=== PATIENT | female | born 1990 | race Caucasian/White ===

== ENCOUNTER 2018-02-04 15:30 | Emergency (ER) | payer MEDICAID ==
[2018-02-04 15:52] VITALS: BMI 20.7
[2018-02-04 15:56] VITALS: O2SAT 100
--- NOTE | 2018-02-04 16:03 | C.PDOC ---
History Of Present Illness 27 yo female come in for evaluation of lower back, B/L hips and Right ankle pain developed for past 3 days after sustained mechanical fall. Pt reports, " tripped and fell down, twisted my ankle". Pt sts, pain is localized over injured area, non-radiating and worse with movement, weight bearing. Otherwise, pt denies head injury, LOC, syncope, headache, neck pain, CP, denies obvious deformity, weakness, sensory or vascular deficits. Ambulate to Ed for evaluation , not in any apparent distress. Time Seen by Provider: 02/04/18 15:49 Chief Complaint (Nursing): Lower Extremity Problem/Injury History Per: Patient Past Medical History Reviewed: Historical Data, Nursing Documentation, Vital Signs Vital Signs: Last Vital Signs Temp 98 F 02/04/18 17:31 Pulse 60 02/04/18 17:31 Resp 20 02/04/18 17:31 BP 126/76 02/04/18 17:31 Pulse Ox 100 02/04/18 17:54 - Medical History PMH: No Chronic Diseases - [facility] Procedures CLOSURE SKIN & SUBCUTANEOUS NEC (07/02/14) EXCISION OF RIGHT FALLOPIAN TUBE, ENDO (08/30/15) RESECTION OF PRODUCTS OF CONCEPTION, ECTOPIC, ENDO (08/30/15) TETANUS TOXOID ADMINIST (07/02/14) Family History: States: Unknown Family Hx - Social History Hx Tobacco Use: Yes Hx Alcohol Use: Yes Hx Substance Use: No - Immunization History Hx Tetanus Toxoid Vaccination: Yes (2 years ago) Hx Influenza Vaccination: No Hx Pneumococcal Vaccination: No Review Of Systems Except As Marked, All Systems Reviewed And Found Negative. Constitutional: Negative for: Fever, Chills Eyes: Negative for: Vision Change ENT: Negative for: Ear Discharge, Nose Discharge, Throat Pain Cardiovascular: Negative for: Chest Pain Gastrointestinal: Negative for: Nausea, Vomiting Genitourinary: Negative for: Incontinence Musculoskeletal: Positive for: Back Pain, Other (Right ankle) Skin: Negative for: Rash, Bruising Neurological: Negative for: Weakness, Numbness, Altered Mental Status, Headache , Dizziness Physical Exam - Physical Exam Appears: Well, Non-toxic, No Acute Distress Skin: Normal Color, Warm, Dry, No Rash, No Ecchymosis Head: Normacephalic Eye(s): bilateral: PERRL Nose: No Flaring, No Discharge Oral Mucosa: Moist Tongue: Normal Appearing Lips: Normal Appearing Neck: Trachea Midline, No Midline Cervical Tenderness, No Paracervical Tenderness, No Step Off Deformity, Supple Chest: Symmetrical, No Deformity, No Tenderness Back: No CVA Tenderness, No Vertebral Tenderness, No Muscle Spasm, Paraspinal Tenderness (mild diffuse lumbar) Extremity: Normal ROM (Right ankle), No Tenderness, Capillary Refill (less than 2sec to right foot), No Deformity, Swelling (mild edema over lateral malleolus Right ankle. No palpable deformity) Neurological/Psych: Oriented x3, Normal Speech, Normal Motor, Normal Reflexes ED Course And Treatment O2 Sat by Pulse Oximetry: 100 Pulse Ox Interpretation: Normal - Other Rad L-spine X-Ray: Interpreted by Me, Viewed By Me Interpretation: (-) acute fx or sublux Right ankle X-Ray: Interpreted by Me, Viewed By Me Interpretation: (-) acute fx or dislocation Pelvis w/B/L hips X-Ray: Interpreted by Me, Viewed By Me Interpretation: (-) acute fx or dislocation Progress Note: On re-evaluation, pt is afebrile, hemodynamicaly stable. Non- toxic. Ambulatory in Ed with stable gait. PulsEOx 100% RA. Head: AT/NC. neck : Supple, (-) midline tenderness. Abd: benign, (-) guarding, (-) rebound. back : (-) CVA tenderness. Right ankle: mild edema over lateral malleolus. NO palpable deformity, FAROM, no neurovascular deficits. Neurologicaly intact. Imaging review and appears normal, no acute fx of dislocation. Pt has clinical findings c/w Right ankle sprain, lower back sprain. Pt advised. ref. to f/u with PMD in 2-3 days for re-eavluation. return to ED if any worsening or new changes. Disposition Counseled Patient/Family Regarding: Studies Performed, Diagnosis, Need For Followup - Disposition Referrals: [facility] [Outside] Disposition: HOME/ ROUTINE Disposition Time: 16:24 Condition: STABLE Additional Instructions: Take medication as prescribed Light duty to lower back and Right ankle for 1 week Follow up with PMD, Orthopedist in2 -3 days for re-evaluation. return to ED if any worsening or new changes. Prescriptions: traMADol [Ultram] 50 mg PO TID #7 tab Instructions: Ankle Sprain, Low Back Pain (DC), Lumbar Muscle Strain (DC) Forms: [employer] (Maori) - Clinical Impression Clinical Impression: Muscle strain, Lumbar sprain, Ankle sprain
[2018-02-04 17:34] VITALS: BP 126/76; PULSE 60; RESP 20; TEMP 98
--- NOTE | 2018-02-04 18:10 | RAD ---
PROCEDURE: Right Ankle Radiographs. HISTORY: injury COMPARISON: None FINDINGS: BONES: Normal. No fracture. JOINTS: Normal. No osteoarthritis. Ankle mortise maintained. Talar dome intact SOFT TISSUES: Normal. OTHER FINDINGS: None. IMPRESSION: Normal right ankle radiographs.
--- NOTE | 2018-02-04 18:10 | RAD ---
PROCEDURE: Radiographs of the Lumbar Spine. HISTORY: injury COMPARISON: No prior. FINDINGS: BONES: Normal alignment. No listhesis. No fracture. DISC SPACES: Unremarkable. OTHER FINDINGS: None. IMPRESSION: Unremarkable radiographs of the lumbar spine.
--- NOTE | 2018-02-04 18:10 | RAD ---
PROCEDURE: Radiographs of the pelvis and bilateral hips HISTORY: Trauma COMPARISON: None. FINDINGS: BONES: Pelvis: Unremarkable. Right hip:Unremarkable. Left hip:Unremarkable. JOINTS: Right hip: Unremarkable. Left hip: Unremarkable. Sacroiliac Joints: Unremarkable. Pubic symphysis: Unremarkable. SOFT TISSUES: Normal. OTHER FINDINGS: None. IMPRESSION: Unremarkable radiographs of the hips and pelvis.
== END 2018-02-04 17:58 | disposition home or self-care (01) ==
LOC: C.ER 15:30
DX: S93.401A Sprain of unspecified ligament of right ankle, initial encounter (principal); S33.5XXA Sprain of ligaments of lumbar spine, initial encounter; W01.0XXA Fall on same level from slipping, tripping and stumbling without subsequent striking against object, initial encounter; Z72.0 Tobacco use

== ENCOUNTER 2018-10-09 19:22 | Emergency (ER) | payer MEDICAID ==
[2018-10-09 19:22] VITALS: BMI 20.7
--- NOTE | 2018-10-09 20:47 | C.PDOC ---
History Of Present Illness Patient reports vomiting twice today, unsure if it was something she ate. Denies diarrhea or abdominal pain. Also reports possible eye swelling and that sometimes "for a second I think everything goes blurry, but when I blink it's fine". Denies eye discharge or pain. Denies fever or any other symptoms. Time Seen by Provider: 10/09/18 19:48 Chief Complaint (Nursing): GI Problem History Per: Patient Past Medical History Reviewed: Historical Data, Nursing Documentation, Vital Signs Vital Signs: Last Vital Signs Temp 98.3 F 10/09/18 19:32 Pulse 81 10/09/18 19:32 Resp 22 10/09/18 19:32 BP 138/88 10/09/18 19:32 Pulse Ox 100 10/09/18 19:32 [place] Report Viewed: Yes - Medical History PMH: No Chronic Diseases Surgical History: No Surg Hx - [facility] Procedures CLOSURE SKIN & SUBCUTANEOUS NEC (07/02/14) EXCISION OF RIGHT FALLOPIAN TUBE, ENDO (08/30/15) RESECTION OF PRODUCTS OF CONCEPTION, ECTOPIC, ENDO (08/30/15) TETANUS TOXOID ADMINIST (07/02/14) Family History: States: Unknown Family Hx - Social History Hx Tobacco Use: Yes Hx Alcohol Use: Yes Hx Substance Use: No - Immunization History Hx Tetanus Toxoid Vaccination: Yes (2 years ago) Hx Influenza Vaccination: No Hx Pneumococcal Vaccination: No Review Of Systems Except As Marked, All Systems Reviewed And Found Negative. Constitutional: Negative for: Fever, Chills Eyes: Positive for: Vision Change, Eyelid Inflammation. Negative for: Pain, Conjunctivae Inflammation, Redness Cardiovascular: Negative for: Chest Pain Respiratory: Negative for: Cough, Shortness of Breath Gastrointestinal: Positive for: Nausea, Vomiting. Negative for: Abdominal Pain, Diarrhea Genitourinary: Negative for: Dysuria Neurological: Negative for: Altered Mental Status Physical Exam - Physical Exam Appears: Well, Non-toxic, No Acute Distress Skin: Normal Color, Warm, Dry Head: Atraumatic Eye(s): bilateral: Normal Inspection (No swelling, redness, discharge noted), PERRL, EOMI Oral Mucosa: Moist Cardiovascular: Rhythm Regular Respiratory: Normal Breath Sounds Gastrointestinal/Abdominal: Normal Exam, Soft, No Tenderness, No Distention, No Guarding, No Rebound Neurological/Psych: Oriented x3, Normal Speech ED Course And Treatment O2 Sat by Pulse Oximetry: 100 Medical Decision Making Medical Decision Making: Patient given PO zofran for mild nausea. Able to tolerate PO. Rx written for additional Zofran. Eyes appear unremarkable on exam. Advised continuing hydration. Take Tylenol or Motrin for any pain. Follow up as outpatient. Return to the ED for any new or worsening symptoms. Disposition - Disposition Disposition: HOME/ ROUTINE Disposition Time: 21:23 Condition: GOOD Additional Instructions: ROSE MARY RICE, thank you for letting us take care of you today. Your provider was Naida Alexandre MD and you were treated for VOMITTING. The emergency medical care you received today was directed at your acute symptoms. If you were prescribed any medication, please fill it and take as directed. It may take several days for your symptoms to resolve. Return to the Emergency Department if your symptoms worsen, do not improve, or if you have any other problems. Please contact your doctor or call one of the physicians/clinics you have been referred to that are listed on the Patient Visit Information form that is included in your discharge packet. Bring any paperwork you were given at discharge with you along with any medications you are taking to your follow up visit. Our treatment cannot replace ongoing medical care by a primary care provider outside of the emergency department. Thank you for allowing the [facility] team to be part of your care today. If you had an X-Ray or CT scan: A Radiologist will review the ED reading if any change in treatment is needed we will contact you. If you had a blood, urine, or wound culture: It will take several days for the results, if any change in treatment is needed we will contact you. If you had an STI test: It will take 48 hours for the results. Please call after 1 week if you have not heard back. Prescriptions: Ondansetron HCl [Zofran] 4 mg PO Q8H #9 solution Instructions: Viral Gastroenteritis, Adult (DC) Forms: [employer] (Japanese) - Clinical Impression Clinical Impression: Vomiting, Discomfort of both eyes
[2018-10-09 21:33] VITALS: BP 120/68; PULSE 78; RESP 20; TEMP 98
[2018-10-10 01:04] VITALS: O2SAT 100
== END 2018-10-09 21:30 | disposition home or self-care (01) ==
LOC: C.ER 19:22
DX: R11.10 Vomiting, unspecified (principal); H57.89 Other specified disorders of eye and adnexa